=== PATIENT | female | born 1970 | race Caucasian/White ===

== ENCOUNTER 2016-12-01 13:13 | Outpatient (CLI) | payer OTHER ==
[2013-06-19 15:37] VITALS: BP 144/70
--- NOTE | 2016-12-01 14:29 | Diagnostic Imaging Report ---
KALEY PERKINS [facility] [address] [facility] [address] [address] Report Submission Date: Dec 01, 2016 2:25:03 PM CDT Patient Study Name: ARMANDO PEREZ Date: Dec 01, 2016 1:19:59 PM CDT Modality Type: CR Gender: F Description: SHOULDER : 70 Institution: [facility] Physician: KALEY PERKINS Left shoulder three views HISTORY: Pain after fall FINDINGS: Moderate left acromioclavicular osteoarthritis is observed. There is no fracture or dislocation. IMPRESSION: Mild left acromioclavicular osteoarthritis. Electronically signed on Dec 01, 2016 2:25:03 PM CDT by: Matteo CASH
--- NOTE | 2016-12-01 14:29 | Diagnostic Imaging Report ---
KALEY PERKINS [facility] [address] [facility] [address] [address] Report Submission Date: Dec 01, 2016 2:24:34 PM CDT Patient Study Name: ARMANDO PEREZ Date: Dec 01, 2016 1:23:52 PM CDT Modality Type: CR Gender: F Description: UPPER EXTREMITY : 70 Institution: [facility] Physician: KALEY PERKINS Left humerus two views HISTORY: Pain after fall 2 weeks ago FINDINGS: Moderate acromioclavicular osteoarthritis is observed. The left humerus is intact without fracture, dislocation, arthropathy, or focal bone lesion. IMPRESSION: Acromioclavicular osteoarthritis. Electronically signed on Dec 01, 2016 2:24:34 PM CDT by: Matteo CASH
== END 2016-12-01 13:14 ==
LOC: RAD 13:13
PROVIDERS: ATTEND Physician Assistant
DX: M79.602 Pain in left arm (principal)
CPT/HCPCS: 73030; 73060

== ENCOUNTER 2018-11-11 11:38 | Outpatient (CLI) | payer BC ==
[2013-06-19 15:37] VITALS: BP 144/70
== END 2018-11-11 11:40 ==
LOC: LAB 11:38
PROVIDERS: ATTEND Family Medicine
DX: Z01.84 Encounter for antibody response examination (principal)
CPT/HCPCS: 36415; 86706; 86735; 86762; 86765; 86787